=== PATIENT | female | born 1950 | race Caucasian/White ===

== ENCOUNTER 2021-06-03 16:30 | Outpatient (REF) | payer MEDICARE, MEDICAID, SELFPAY ==
--- NOTE | ~2021-06-03 | MR_ITS ---
EXAMINATION: MR CERVICAL SPINE WITHOUT CONTRAST CLINICAL INFORMATION: Quadriparesis. COMPARISON: None available. TECHNIQUE: MRI of the cervical spine was obtained using routine sequences without contrast. FINDINGS: Normal anatomic alignment. Advanced degenerative disc disease at C5-C6 and C6-C7. Moderate degenerative disc disease at C3-C4, C4-C5, and T2-T3. Mild degenerative disc disease at all additional cervical levels. Associated mixed Modic type discogenic endplate changes including mild Modic type I discogenic edema at C5-C6, C6-C7, and T1-T2. Mild marrow edema within the right-sided C7-T1 facets consistent with degenerative stress reaction. The vertebral body heights are largely maintained. No additional suspicious marrow edema. No demonstrated spinal cord signal abnormalities. Limited evaluation of the soft tissues of the neck without demonstrated abnormalities. Right dominant vertebral artery. The flow voids of the major cervical vessels are maintained. Normal appearance of the cervicomedullary junction and visualized posterior fossa. SPINAL LEVELS: C2-C3: Normal annular contour. There is mild bilateral uncovertebral joint arthropathy. There is moderate right and mild left facet joint arthropathy. There is mild right and no left neural foraminal stenosis. There is no spinal canal stenosis. C3-C4: Mild disc-osteophyte complex. There is moderate right and mild left uncovertebral joint arthropathy. There is severe right and moderate left facet joint arthropathy. There is severe right and moderate left neural foraminal stenosis. There is no spinal canal stenosis. C4-C5: Mild disc-osteophyte complex. There is moderate bilateral uncovertebral joint arthropathy. There is severe left and moderate right facet joint arthropathy. There is moderate left and mild right neural foraminal stenosis. There is no spinal canal stenosis. C5-C6: Moderate disc-osteophyte complex. There is severe bilateral uncovertebral joint arthropathy. There is mild bilateral facet joint arthropathy. There is severe left and moderate right neural foraminal stenosis. There is moderate spinal canal stenosis. C6-C7: Prominent disc-osteophyte complex. There is severe bilateral uncovertebral joint arthropathy. There is mild bilateral facet joint arthropathy. There is severe bilateral neural foraminal stenosis. There is moderate spinal canal stenosis. C7-T1: Mild disc-osteophyte complex. There is mild bilateral uncovertebral joint arthropathy. There is moderate right and mild left facet joint arthropathy. There is mild right and no left neural foraminal stenosis. There is no spinal canal stenosis. MR/MR cervical spine wo con IMPRESSION: Moderate to advanced multilevel degenerative spondyloarthropathy of the cervical spine as described in detail above. Most notably, there are moderate spinal canal stenoses at C5-C6 and C6-C7. Moderate to severe neural foraminal stenoses from C3-C7.
== END 2021-06-03 16:31 | disposition home or self-care (01) ==
LOC: HO.MRI 16:30
PROVIDERS: Visit Provider Psychiatry & Neurology Neurology
DX: G82.50 Quadriplegia, unspecified (principal)
CPT/HCPCS: 72141